=== PATIENT | male | born 1985 | race Caucasian/White ===

== ENCOUNTER 2018-08-05 02:46 | Emergency (ER) | payer BC ==
--- NOTE | 2018-08-05 02:55 | EDM.PDOC ---
ED HPI GENERAL MEDICAL PROBLEM - General Stated Complaint: WEAKNESS,SOB Time Seen by Provider: 08/05/18 02:46 Source of Information: Reports: Patient History Limitations: Reports: No Limitations - History of Present Illness INITIAL COMMENTS - FREE TEXT/NARRATIVE: 32 y.o.w.m came to the ED this am, unable to sleep in the past 12 hours. Pt's shifts are starting at 3 am. Pt stated, he does not feel "right". No N/V/D, no SOP or chest pain. No trauma, no other acute med issues. 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 ) Associated Symptoms: Reports: No Other Symptoms - Related Data Allergies Allergy/AdvReac Type Severity Reaction Status Date / Time No Known Allergies Allergy Verified 08/05/18 03:19 Home Meds: Home Meds NK [No Known Home Meds] 08/05/18 [History] ED ROS GENERAL - Review of Systems Review Of Systems: See Below Constitutional: Reports: Other (unable to sleep, not feeling well) HEENT: Reports: No Symptoms Respiratory: Reports: No Symptoms Cardiovascular: Reports: No Symptoms Endocrine: Reports: No Symptoms GI/Abdominal: Reports: No Symptoms : Reports: No Symptoms Musculoskeletal: Reports: No Symptoms Skin: Reports: No Symptoms Neurological: Reports: No Symptoms Psychiatric: Reports: No Symptoms Hematologic/Lymphatic: Reports: No Symptoms Immunologic: Reports: No Symptoms ED EXAM, GENERAL - Physical Exam Exam: See Below Exam Limited By: No Limitations General Appearance: Alert, WD/WN, Mild Distress, Obese Eye Exam: Bilateral Eye: Normal Inspection Ears: Normal External Exam Ear Exam: Bilateral Ear: Auricle Normal Nose: Normal Inspection, Normal Mucosa, No Blood Throat/Mouth: Normal Inspection, Normal Lips, Normal Voice, No Airway Compromise Head: Atraumatic, Normocephalic Neck: Normal Inspection, Supple, Non-Tender, Full Range of Motion Respiratory/Chest: No Respiratory Distress, Lungs Clear, Normal Breath Sounds, Chest Non-Tender Cardiovascular: Normal Peripheral Pulses, Regular Rate, Rhythm, No Edema, No Gallop, No JVD, No Murmur Peripheral Pulses: 1+: Brachial (R) GI/Abdominal: Normal Bowel Sounds, Soft, Non-Tender, No Organomegaly, Pelvis Stable (Male) Exam: Deferred Rectal (Males) Exam: Deferred Back Exam: Normal Inspection, Full Range of Motion Extremities: Normal Inspection, Normal Range of Motion, Non-Tender, Normal Capillary Refill Neurological: Alert, Oriented, CN II-XII Intact, Normal Cognition, Normal Gait Psychiatric: Depressed Mood Skin Exam: Warm, Dry, Intact, Normal Color, No Rash Lymphatic: No Adenopathy Course - Vital Signs Text/Narrative:: 32 y.o.w.m came to the ED this am, unable to sleep in the past 12 hours. Pt's shifts are starting at 3 am. Pt stated, he does not feel "right". No N/V/D, no SOP or chest pain. No trauma, no other acute med issues. BP 151/90 RR 20 Pulse ox 99% on RA, Pulse 85 Temp 36.8 PE: Obese 32 y.o.w.m tired, not feeling "right" Labs: CBC, BMP and UD were neg. RBC were 5.8 however Imaging: Not indicated Impression: Insomnia Tx: none, advised to take Benadryl at home Reexam: Pt did fine here in the ed Plan: D/C with instructions Last Recorded V/S: Last Vital Signs Temp 36.4 C 08/05/18 03:58 Pulse 77 08/05/18 03:58 Resp 18 08/05/18 03:58 BP 163/95 H 08/05/18 03:58 Pulse Ox 95 08/05/18 03:58 - Orders/Labs/Meds Labs: Laboratory Tests 08/05/18 08/05/18 08/05/18 Range/Units 03:08 03:08 03:08 WBC 9.8 (4.5-12.0) X10-3/uL RBC 5.84 H (4.30-5.75) x10(6)uL Hgb 16.9 (13.5-17.8) g/dL Hct 48.5 (30.0-51.3) % MCV 83.0 (80-96) fL MCH 28.9 (27.7-33.6) pg MCHC 34.8 (32.2-35.4) g/dL RDW 13.0 (11.5-15.5) % Plt Count 237 (125-369) X10(3)uL MPV 7.4 (7.4-10.4) fL Neut % (Auto) 69.5 (46-82) % Lymph % (Auto) 22.8 (13-37) % [place] % (Auto) 4.7 (4-12) % Eos % (Auto) 2 (1.0-5.0) % Baso % (Auto) 1 (0-2) % Neut # (Auto) 6.8 (1.6-8.3) # Lymph # (Auto) 2.2 (0.6-5.0) # [place] # (Auto) 0.5 (0.0-1.3) # Eos # (Auto) 0.2 (0.0-0.8) # Baso # (Auto) 0.1 (0.0-0.2) # Sodium 140 (135-145) mmol/L Potassium 4.4 (3.5-5.3) mmol/L Chloride 104 (100-110) mmol/L Carbon Dioxide 23 (21-32) mmol/L BUN 16 (7-18) mg/dL Creatinine 0.8 (0.70-1.30) mg/dL Est Cr Clr Drug Dosing TNP Estimated GFR (MDRD) > 60 (>60) BUN/Creatinine Ratio 20.0 (9-20) Glucose 112 (80-116) mg/dL Calcium 9.1 (8.6-10.2) mg/dL Magnesium 2.0 (1.8-2.5) mg/dL Urine Opiates Screen (NEGATIVE) Ur Oxycodone Screen (NEGATIVE) Ur Propoxyphene Screen (NEGATIVE) Ur Barbituates Screen (NEGATIVE) Ur Tricyclics Screen (NEGATIVE) Ur Phencyclidine Scrn (NEGATIVE) Ur Amphetamine Screen (NEGATIVE) Urine MDMA Screen (NEGATIVE) U Benzodiazepines Scrn (NEGATIVE) U Cocaine Metab Screen (NEGATIVE) U Marijuana (THC) Screen (NEGATIVE) Ethyl Alcohol < 0.03 (<0.03) % 08/05/18 Range/Units 03:19 WBC (4.5-12.0) X10-3/uL RBC (4.30-5.75) x10(6)uL Hgb (13.5-17.8) g/dL Hct (30.0-51.3) % MCV (80-96) fL MCH (27.7-33.6) pg MCHC (32.2-35.4) g/dL RDW (11.5-15.5) % Plt Count (125-369) X10(3)uL MPV (7.4-10.4) fL Neut % (Auto) (46-82) % Lymph % (Auto) (13-37) % [place] % (Auto) (4-12) % Eos % (Auto) (1.0-5.0) % Baso % (Auto) (0-2) % Neut # (Auto) (1.6-8.3) # Lymph # (Auto) (0.6-5.0) # [place] # (Auto) (0.0-1.3) # Eos # (Auto) (0.0-0.8) # Baso # (Auto) (0.0-0.2) # Sodium (135-145) mmol/L Potassium (3.5-5.3) mmol/L Chloride (100-110) mmol/L Carbon Dioxide (21-32) mmol/L BUN (7-18) mg/dL Creatinine (0.70-1.30) mg/dL Est Cr Clr Drug Dosing Estimated GFR (MDRD) (>60) BUN/Creatinine Ratio (9-20) Glucose (80-116) mg/dL Calcium (8.6-10.2) mg/dL Magnesium (1.8-2.5) mg/dL Urine Opiates Screen Negative (NEGATIVE) Ur Oxycodone Screen Negative (NEGATIVE) Ur Propoxyphene Screen Negative (NEGATIVE) Ur Barbituates Screen Negative (NEGATIVE) Ur Tricyclics Screen Negative (NEGATIVE) Ur Phencyclidine Scrn Negative (NEGATIVE) Ur Amphetamine Screen Negative (NEGATIVE) Urine MDMA Screen Negative (NEGATIVE) U Benzodiazepines Scrn Negative (NEGATIVE) U Cocaine Metab Screen Negative (NEGATIVE) U Marijuana (THC) Screen Negative (NEGATIVE) Ethyl Alcohol (<0.03) % Departure - Departure Time of Disposition: 03:48 Disposition: Home, Self-Care 01 Condition: Good Clinical Impression: Insomnia - Discharge Information Instructions: Insomnia Referrals: Breonna Sainz PA [Primary Care Provider] - Forms: ED Return to Work/School Form Additional Instructions: Please take 25-20 mg of Benadryl 30 min before you r go to sleep. Pleasee do not eat anything 3-4 hours before you go t sleep. Please f/u, come back if your symptoms get worse acutely.
== END 2018-08-05 04:00 | disposition home or self-care (01) ==
LOC: FB.ED 02:46
DX: G47.00 Insomnia, unspecified (principal)
CPT/HCPCS: 36415; 80048; 80305; 83735; 85025; 99283; G0480

== ENCOUNTER 2022-04-08 08:46 | Emergency (ER) | payer SELFPAY | END 2022-04-08 10:35 | disposition home or self-care (01) | LOC: FB.ED 08:46 | DX: S20.212A Contusion of left front wall of thorax, initial encounter (principal); W01.0XXA Fall on same level from slipping, tripping and stumbling without subsequent striking against object, initial encounter | CPT/HCPCS: 71101-LT; 99284 ==

== ENCOUNTER 2023-12-09 21:29 | Emergency (ER) | payer OTHER ==
[2023-12-09] MEDS ORDERED: Cephalexin 500 MG Cap PO ONE (21:30)
[2023-12-09 22:28] LABS: BASOPHILS ABSOLUTE AUTO 0.1 x10-3/uL (0.0-0.3); BASOPHILS PERCENT AUTO 0.5 % (0.3-3.8); EOSINOPHILS ABSOLUTE AUTO 0.2 x10-3/uL (0.0-0.6); EOSINOPHILS PERCENT AUTO 1.8 % (0.1-6.8); HEMATOCRIT 47.8 % (38.3-50.1); HEMOGLOBIN 16.3 g/dL (12.9-17.7); LYMPHOCYTES ABSOLUTE AUTO 2.2 x10-3/uL (0.5-4.5); MEAN CORPUSCULAR HEMOGLOBIN 28.3 pg (27.0-33.3); MEAN CORPUSCULAR HGB CONC 34.1 g/dL (28.7-35.3); MEAN CORPUSCULAR VOLUME 83.1 fL (80.8-98.7); MONOCYTES ABSOLUTE AUTO 0.9 x10-3/uL (0.0-1.2); MONOCYTES PERCENT AUTO 7.1 % (5.5-15.2); NEUTROPHILS ABSOLUTE AUTO 9.7 x10-3/uL (1.7-6.9); NEUTROPHILS PERCENT AUTO 73.6 % (40.3-71.8); PLATELET COUNT,PLT 296 x10(3)uL (117-477); RED BLOOD CELL COUNT 5.75 x10(6)uL (3.90-5.90); WHITE BLOOD CELL COUNT,WBC 13.2 x10-3/uL (3.2-10.1)
[2023-12-09 22:35] LABS: A/G RATIO 0.8; ALANINE AMINOTRANSFERASE,ALT 28 U/L (12-36); ALBUMIN 3.2 g/dL (3.5-5.2); ALKALINE PHOSPHATASE 93 IU/L (56-112); ASPARTATE AMNIOTRANSFERASE,AST 15 IU/L (5-25); BILIRUBIN TOTAL 0.4 mg/dL (0.1-1.3); BLOOD UREA NITROGEN,BUN 16 mg/dL (7-18); BUN/CREATININE RATIO 14.5 (9-20); CALCIUM 8.7 mg/dL (8.6-10.2); CARBON DIOXIDE,CO2 27 mmol/L (21-32); CHLORIDE,CL 106 mmol/L (100-110); CREATININE 1.1 mg/dL (0.70-1.30); EST CRCL DRUG DOSING (CG) 107.76 mL/min; ESTIMATED GFR 88 mL/min (>60); GLUCOSE RANDOM 115 mg/dL (80-116); POTASSIUM,K 4.2 mmol/L (3.5-5.3); PROTEIN TOTAL,TP 7.2 g/dL (6.0-8.0); SODIUM,NA 142 mmol/L (135-145)
[2023-12-09 22:40] LABS: HEMOGLOBIN A1C 5.2 % (<5.7)
== END 2023-12-09 23:31 | disposition home or self-care (01) ==
LOC: FB.ED 21:29
DX: M54.16 Radiculopathy, lumbar region (principal); L60.0 Ingrowing nail; Z79.899 Other long term (current) drug therapy; Z87.891 Personal history of nicotine dependence
CPT/HCPCS: 80053; 83036; 85025; 85379; 99283; A9270-GY